=== PATIENT | female | born 1945 | race Caucasian/White ===

== ENCOUNTER → 2020-09-04 10:42 | Outpatient (CLI) | payer MEDICARE, SELFPAY ==
--- NOTE | ~2020-09-04 | MM_ITS ---
EXAMINATION: MM scrn dereck implant BI w lee HISTORY: Screening mammogram, family history of breast cancer in her mother. TECHNIQUE: Craniocaudal and mediolateral oblique 3-D tomosynthesis images with implant displacement a nd synthetic 2-D images were generated. Craniocaudal and mediolateral oblique views of the breasts wi thout implant displacement were obtained using full field digital mammography. CAD analysis was submi tted and interpreted. COMPARISON: 02/02/2019, 12/31/2017, 12/29/2016 BREAST PARENCHYMAL COMPOSITION: The breasts are almost entirely fatty. FINDINGS: There is no evidence of suspicious mass, calcification, or architectural distortion to sugg est malignancy in either breast. There has been no suspicious interval change. IMPRESSION: 1. No mammographic evidence of malignancy. 2. Recommend routine screening mammography in one year. BI-RADS Category 1: Negative Reviewed, dictated and finalized at location A. STORAGE WORKER
== END ==
PROVIDERS: Visit Provider Family Medicine
DX: Z12.31 Encounter for screening mammogram for malignant neoplasm of breast (principal)
CPT/HCPCS: 77063; 77067

== ENCOUNTER 2022-04-13 08:21 | Outpatient (CLI) | payer MEDICARE, SELFPAY ==
[2022-04-13 09:11] LABS: Appearance Urine Clear (Clear); Bilirubin Urine Negative (Negative); Blood Urine Negative (Negative); Color Urine Yellow (Yellow); Glucose Urine UA Negative (Negative); Ketones Urine Negative (Negative); Leukocyte Esterase Ur Negative LEU/UL (NEGATIVE); Nitrate Urine Negative (Negative); Protein Urine Negative (Negative); Urobilinogen Urine 0.2 mg/dL (<2.0)
[2022-04-13 09:12] LABS: Add Urine Microscopic? NO
[2022-04-13 09:12] LABS: Basophils Absolute Auto 0.1 K/mm3 (0.0-0.1); Basophils Percent Auto 0.5 % (0.2-1.2); Eosinophils Absolute Auto 0.1 K/mm3 (0-0.3); Eosinophils Percent Auto 0.8 % (0-4.4); Hematocrit 40.1 % (37.0-47.0); Hemoglobin 13.5 g/dL (12.0-15.0); Immature Granulocyte Absolute 0.14 K/mm3 (0.00-0.031); Immature Granulocyte Percent A 1.2 % (0-0.5); Lymphocytes Absolute Auto 2.68 K/mm3 (0.9-3.2); Lymphocytes Percent Auto 22.5 % (18.3-44.2); Mean Corpuscular HGB Conc 33.7 g/dl (32-36); Mean Corpuscular Hemoglobin 29.1 pg (26-34); Mean Corpuscular Volume 86.4 fl (80-100); Mean Platelet Volume 9.2 fl (7.4-10.4); Monocytes Absolute Auto 0.9 K/mm3 (0.1-0.6); Monocytes Percent Auto 7.9 % (2.6-8.5); Neutrophils Percent Auto 67.1 % (45.5-73.1); Platelet Count Result 446 k/mm3 (150-375); Red Blood Count 4.64 M/mm3 (4.2-5.4); Red Cell Distribution Width 15.6 % (11.5-14.5); White Blood Count 11.9 K/mm3 (4.5-10.0)
[2022-04-13 09:25] LABS: Partial Thromboplastin Time 24.4 SECONDS (22.3-36.8)
[2022-04-13 09:29] LABS: Anion Gap 8 mmol/L (8-16); Blood Urea Nitrogen 14 mg/dL (7-17); Calcium 9.2 mg/dL (8.4-10.2); Carbon Dioxide 29 mmol/L (22-30); Chloride 101 mmol/L (98-107); Estimated Glomerular Filt Rate > 60; Glucose 101 mg/dL (65-110); Sodium 138 mmol/L (137-145)
== END 2022-04-13 08:22 | disposition home or self-care (01) ==
LOC: ANHSURGERY 08:25
PROVIDERS: PCP Family Medicine; Visit Provider Neurological Surgery
DX: M48.061 Spinal stenosis, lumbar region without neurogenic claudication (principal); Z01.818 Encounter for other preprocedural examination
CPT/HCPCS: 36415; 80048; 81003; 85025; 85610; 85730; 86850; 86900; 86901

== ENCOUNTER 2022-04-15 00:53 | Day surgery (SDC) | payer MEDICARE, SELFPAY ==
--- NOTE | 2022-04-10 08:18 | PC.NURSE ---
Report to the Outpatient Waiting Room, entrance under the green pavilion located off [facility], at time _0600 on date _04/15/22 . OR Time: __30 . - You and your visitor will be asked a series of questions to screen for COVID 19 for your protection. - Only one visitor is allowed at this time. - The patient visitor is requested to leave or wait in car when not with patient. - A mask is required within the hospital. Patients may have clear liquids (water, carbonated beverages, clear teas, apple juice) until 3 hours prior to surgery with a maximum of 20 ounces. - No food from midnight until time of surgery - Infants may have breast milk until 4 hours before surgery, infant formula 6 hours prior to surgery. - Children will be allowed to drink immediately following surgery. If applicable, please bring a bottle or sippy cup to assist with drinking. Juice, water, soda, and popsicles are readily available. For infants on formula, please bring formula the day of surgery. Pacifiers are allowed. Take the following medications with a SIP of water the morning of surgery: __ALPRAZOLAM,DILTIAZEM Medications to discontinue per physician __PT STATES ASPIRIN AND MULTI VITAMIN 7 DAYS PRE OP PER DR ZEPEDA. ALL VITAMINS AND SUPPLEMENTS 3 DAYS PRE OP Date to take last dose_ASPIRIN AND MULTI VITAMIN 04/07/22. ALL VITAMINS AND SUPP. 04/11/22 Please no make-up, nail gibraltarian, hairspray, perfume, deodorant, or body powder the day of surgery. No jewelry (including any body piercings) or valuables the day of surgery, leave them at home. Please take a shower or bath the night before, or the morning of, surgery with an antibacterial soap. Wear comfortable, loose fitting clothing. Children are encouraged to wear pajamas. - Jewelry must be removed prior to entering the operating room. Rings and piercings that are not removed may be cut off. - The hospital will not accept responsibility for valuables. - Please leave all valuables, including medications, at home the day of surgery. If you are going home after surgery, a licensed city route driver must drive you home. - NO public transportation without another adult. - We recommend that an adult stay with you for 24 hours following discharge. - We also recommend that you do not drive, make important decision, drink alcoholic beverages, or take any drugs that were not prescribed by your health care provider for at least 24 hours after your discharge time. For Pediatric surgeries, we recommend two adults accompany the child home (only one inside the building at this time). Follow any additional instructions given to you from your surgeon. If you or anyone in your household have experienced Covid symptoms in the past week, please notify your surgeon or the nurse liaison at the phone number below for possible testing. Telephone instructions given to _PATIENT and asked if any additional questions and then verbalized understanding. Patient advised to call surgeon office or pre surgery nurse liaison [phone] if any additional questions.
[2022-04-10 08:32] VITALS: BMI 30.4
--- NOTE | 2022-04-14 14:41 | WPDANESEPPF ---
Anes - Initial Pre Proc Eval Procedure: Operation Date: 04/15/22 07:30 Proposed Procedures p Lumbar Decompression L3-4 - Alma Golden MD Date/Time: 04/14/22 14:41 Surgeon: Alma Golden MD Pre Op Diagnosis: Lumbar Stenosis Patient Data Age: 76 Gender: F Height: 1.63 m Weight: 80.3 kg Allergies Allergy/AdvReac Type Severity Reaction Status Date / Time Penicillins Allergy Unknown Rash Unverified 04/15/22 06:12 Home Medications Medication Instructions Recorded Confirmed Type alprazolam 0.25 mg tablet 0.25 mg PO PRN PRN Anxiety 04/10/22 04/15/22 History aspirin 81 mg tablet,delayed 81 mg PO DAILY 04/10/22 04/15/22 History release calcium carbonate 600 mg calcium 1,200 mg PO DAILY 04/10/22 04/15/22 History (1,500 mg) tablet (Calcium) cholecalciferol (vitamin D3) 50 50 mcg PO DAILY 04/10/22 04/15/22 History mcg (2,000 unit) tablet diltiazem HCl 240 mg 240 mg PO DAILY 04/10/22 04/15/22 History capsule,extended release 24 hr esomeprazole magnesium 40 mg 40 mg PO DAILY 04/10/22 04/15/22 History capsule,delayed release (Nexium) evolocumab 140 mg/mL subcutaneous 140 mg subcut [id number] 04/10/22 04/15/22 History pen injector (Kim SureAnkitick) lisinopril 20 1 tablet PO DAILY 04/10/22 04/15/22 History mg-hydrochlorothiazide 12.5 mg tablet multivitamin with minerals-folic 1 tablet PO DAILY 04/10/22 04/15/22 History acid 0.4 mg tablet solifenacin 5 mg tablet (Vesicare) 5 mg PO 3XW 04/10/22 04/15/22 History tizanidine 2 mg tablet 2 mg PO PRN PRN Muscle Spasm 04/10/22 04/15/22 History wheat dextrin 3 gram-calcium 3 g PO DAILY 04/10/22 04/15/22 History gluc,lactate 300 mg/8.8 gram oral powder Patient hx anesthesia problems: none Family hx anesthesia problems: none Results Review: All pre-operative results and documents have been reviewed as part of the pre-operative evaluation. [facility] Past Medical History Medical History (Updated 04/14/22 @ 14:44 by Stalin Gomez MD) Anxiety Arthritis Breast cancer Chronic GERD CVA (cerebral vascular accident) Depression HTN (hypertension) Hx of myocardial infarction Hyperlipidemia Lumbar stenosis Obesity PONV (postoperative nausea and vomiting) Social History Social History Smoking packs per day: 1 Smoking cigarettes per day: 20.0 Years smoked: 15 Smoking pack-years: 15.00 Smoking status: Former smoker Tobacco type: cigarettes Smoking end date: 09/20/74 Alcohol intake: current Drinks per week: 4 Living arrangements: alone Spiritual care concerns: No Anes - Eval Final PreProcedure Day of Procedure 04/14/22 14:41 Patient weight: obese Heart: regular rate and rhythm Lungs: clear to auscultation and normal air movement Airway: Mallampati scale class II Neurological: alert and oriented Last oral intake: >/= 8 hours ASA classification: III Emergent: no Anesthetic plan: proceed Anesthesia type and monitoring: general ETT Results Review: All pre-operative results and documents have been reviewed as part of the pre-operative evaluation. Informed Consent: The patient's anesthetic plan and its attendant risks and benefits were discussed with the patient/family/POA. Questions were solicited and answers provided to the satisfaction of the patient/family/POA.
[2022-04-15] VITALS (12 sets, daily range): BP systolic 127–154; BP diastolic 46–78; PULSE 54–84; RESP 11–16; TEMP 36.4–36.6; O2SAT 94–100
--- NOTE | ~2022-04-15 | XR_ITS ---
XR fluoroscopy no charge Lumbar decompression procedure TECHNIQUE: Fluoroscopy used during lumbar decompression procedure performed by [Alma Golden MD] on 04/15/2022. 11.1 seconds of fluoroscopy. With 2 fluoroscopic images. FINDINGS: Correlate with procedure note. IMPRESSION: Fluoroscopy used during lumbar decompression procedure.. Please refer to procedural repor t for details. Reviewed, dictated and finalized at location A. IMPRESSION: Fluoroscopy used during lumbar decompression procedure.. Please ref er to procedural report for details.
[2022-04-15] MEDS: LACTATED RINGERS 1,000 ML 30 ML IV CONT ×2 (07:00→09:19)
--- NOTE | 2022-04-15 07:43 | PM.HPGS ---
History of Present Illness History of Present Illness Consent: Risks, benefits, and alternatives have been discussed and questions answered. Patient agrees to proceed with procedure. Chief complaint: Lumbar Stenosis Narrative: Holly Payne is a 76 year old female who has claudicatory low back and lower extremity pain in the setting of lumbar stenosis at L3-4. She has not responded to non surgical measures in any durable way, and presents today for surgery, specifically a lumbar decompression L3-4 Review of Systems Review of Systems: negative [facility] Past Medical History Medical History (Updated 04/14/22 @ 14:44 by Stalin Gomez MD) Anxiety Arthritis Breast cancer Chronic GERD CVA (cerebral vascular accident) Depression HTN (hypertension) Hx of myocardial infarction Hyperlipidemia Lumbar stenosis Obesity PONV (postoperative nausea and vomiting) Social History Social History Smoking packs per day: 1 Smoking cigarettes per day: 20.0 Years smoked: 15 Smoking pack-years: 15.00 Smoking status: Former smoker Tobacco type: cigarettes Smoking end date: 09/20/74 Alcohol intake: current Drinks per week: 4 Living arrangements: alone Spiritual care concerns: No Meds Home Medications and Allergies Home Medications Medication Instructions Recorded Confirmed Type alprazolam 0.25 mg tablet 0.25 mg PO PRN PRN Anxiety 04/10/22 04/15/22 History aspirin 81 mg tablet,delayed 81 mg PO DAILY 04/10/22 04/15/22 History release calcium carbonate 600 mg calcium 1,200 mg PO DAILY 04/10/22 04/15/22 History (1,500 mg) tablet (Calcium) cholecalciferol (vitamin D3) 50 50 mcg PO DAILY 04/10/22 04/15/22 History mcg (2,000 unit) tablet diltiazem HCl 240 mg 240 mg PO DAILY 04/10/22 04/15/22 History capsule,extended release 24 hr esomeprazole magnesium 40 mg 40 mg PO DAILY 04/10/22 04/15/22 History capsule,delayed release (Nexium) evolocumab 140 mg/mL subcutaneous 140 mg subcut [id number] 04/10/22 04/15/22 History pen injector (Kim Ching) lisinopril 20 1 tablet PO DAILY 04/10/22 04/15/22 History mg-hydrochlorothiazide 12.5 mg tablet multivitamin with minerals-folic 1 tablet PO DAILY 04/10/22 04/15/22 History acid 0.4 mg tablet solifenacin 5 mg tablet (Vesicare) 5 mg PO 3XW 04/10/22 04/15/22 History tizanidine 2 mg tablet 2 mg PO PRN PRN Muscle Spasm 04/10/22 04/15/22 History wheat dextrin 3 gram-calcium 3 g PO DAILY 04/10/22 04/15/22 History gluc,lactate 300 mg/8.8 gram oral powder Allergies Allergy/AdvReac Type Severity Reaction Status Date / Time Penicillins Allergy Intermediate Rash Verified 04/15/22 07:12 Vital Signs Vital Signs - 24 hr 04/15/22 07:10 Temperature 97.9 F Pulse Rate 84 Respiratory Rate 16 Blood Pressure 150/78 H Pulse Oximetry 98 Oxygen Delivery Room Air Exam Narrative: Awake, alert, oriented x 3 Speech CF THEO EOMI Face= TML MAEW with good strength RRR CTA Soft NTND Assessment and Plan Assessment and plan (1) Lumbar stenosis: Code(s): M48.061 - Spinal stenosis, lumbar region without neurogenic claudication Status: Acute Plan 76 year old female with claudicatory low back and lower extremity pain presents for lumbar decompression L3-4 Please see my office visit note from 03/06/2022 for full documentation as to risks indications and recovery from surgery
--- NOTE | 2022-04-15 07:49 | WPDHPUPDATE1 ---
History and Physical Update Update Date/Time: 04/15/22 07:49 History and Physical has been reviewed, including an updated exam of the patient. There are NO changes in the patient's condition. Risks, benefits, and alternatives have been discussed and questions answered. Patient agrees to proceed with procedure.
[2022-04-15] MEDS: ceFAZolin 2 GM/D5W 50 ML 2 GM/50 ML BAG IVPB (07:54)
[2022-04-15] MEDS: BUPIVACAINE HCL 0.5% PF 30 ML VIAL INFILTRATE (08:35)
[2022-04-15] MEDS: LIDO 1%/EPINEPHRINE 1:100,000 10 ML VIAL INFILTRATE (08:35)
--- NOTE | 2022-04-15 09:03 | W.PM.PROC2 ---
Procedure Note - Detailed Date of Procedure 04/15/22 Pre-op Diagnosis Lumbar Stenosis Post-op Diagnosis Same Procedure Performed Lumbar decompression L3-4 Surgeon Alma Golden MD Anesthesia General Indications Holly Payne is a very pleasant 76 year old female who presents with claudicatory and radicular low back and lower extremity pain in the setting of lumbar stenosis at L3-4. She has not had durable relief of symptoms with non surgical measures. She presents for surgical decompression at L3-4 Risks, indications and recovery from surgery discussed with patient in the office and she asks us to proceed Description of Procedure The patinet was brought into the operating room where general anesthesia was induced. Appropriate monitoring was obtained. The patient was turned into a prone position on the Kristian table with a Eric frame. Extremeties were padded. The patient was secured to the table. Localization was performed using intraoperative fluoroscopy and the L3-4 level was identified. The patient's back was prepped and draped sterilely. A surgical time out was performed. The planned incision was infused with local anesthetic. The incision was made using a #10 skin blade. Hemostasis was achieved. Self retaining retractors were placed and advanced. The L3 and L4 spinous proceeses were identified and the muscle was dissected off of the spinous process and lamina of L3 using bovie electrocautery. Self retaining retractors were advanced. Attention was turned to the L3-4 level. A curette was placed under the L3 lamina and the L3-4 level was confirmed again using intraoperative fluoroscopy. The spinous process was removed using a rongeur. The lamina was drilled using a high speed arden drill with a matchstick tip. The lamina was drilled lateral to the level of the facet complex until, inferiorly, ligament was visible. The lamina was thinned and then dissected from the lamina using a curette. The remaining lamina and medial facet at L3-4 were removed with kerossen punches. The ligament was then carefully dissected away from the thecal sac and removed using kerossen punches. The foramen at L3 and L4 were drilled and dissected / decompressed using the kerossen punches. At the completion of the decompression the central canal and neural foramen were patent on the right and the left at L3 and L4. The wound was irrigated and hemostasis was achieved. Self retaining retractors were removed and the muscle and fascia were closed using interrupted 0 vicryl suture. The soft tissue was closed using 2-0 vicryl suture. The dermis was closed using 3-0 vicryl suture and then a running monocril. The skin was closed with surgical glue. 10cc of 0.5% bupivicaine was infused prior to skin closure. I was present for the entirety of the procedure. All counts were correct. At the completion of the procedure the patient was returned to the stretcher, extubated and taken to recovery in stable condition. Estimated Blood Loss 20 IV Fluids 1,600 (cc) Drains No Pathology None sent Complications None Disposition PACU
[2022-04-15] MEDS: fentaNYL CITRATE INJ (*CRX) 100 MCG/2 ML VIAL 25 MCG IV PUSH ×6 (09:47→11:47)
[2022-04-15] MEDS: oxyCODONE HCL (*CRX) 5 MG TAB IR PO (10:49)
[2022-04-15] MEDS: ONDANSETRON INJ 4 MG/2 ML VIAL IV PUSH (11:29)
== END 2022-04-15 12:36 | disposition home or self-care (01) ==
PROVIDERS: PCP Family Medicine; Visit Provider Neurological Surgery
PROC: (CPT 22612; principal; 2022-04-15 07:30)
DX: M48.061 Spinal stenosis, lumbar region without neurogenic claudication (principal); I10 Essential (primary) hypertension; I25.2 Old myocardial infarction; E78.5 Hyperlipidemia, unspecified; F41.9 Anxiety disorder, unspecified; K21.9 Gastro-esophageal reflux disease without esophagitis; Z85.3 Personal history of malignant neoplasm of breast; F32.A Depression, unspecified; E66.9 Obesity, unspecified; Z68.30 Body mass index [BMI] 30.0-30.9, adult; Z79.82 Long term (current) use of aspirin; Z87.891 Personal history of nicotine dependence
CPT/HCPCS: 63047; 36415; 80048; 81003; 85025; 85610; 85730; 86850; 86900; 86901; 99199; A9270; J0690; J1100; J2405; J2704; J3010; J7120

== ENCOUNTER → 2022-08-26 11:06 | Outpatient (CLI) | payer MEDICARE, SELFPAY ==
--- NOTE | ~2022-08-26 | MM_ITS ---
EXAMINATION: MM scrn dereck implant BI w lee HISTORY: Screening mammogram, family history of breast cancer in her mother. TECHNIQUE: Craniocaudal and mediolateral oblique 3-D tomosynthesis images with implant displacement a nd synthetic 2-D images were generated. Craniocaudal and mediolateral oblique views of the breasts wi thout implant displacement were obtained using full field digital mammography. CAD analysis was submi tted and interpreted. COMPARISON: 09/04/2020, 02/02/2019, 12/31/2017 BREAST PARENCHYMAL COMPOSITION: The breasts are almost entirely fatty. FINDINGS: There is no evidence of suspicious mass, calcification, or architectural distortion to sugg est malignancy in either breast. There has been no suspicious interval change. IMPRESSION: 1. No mammographic evidence of malignancy. 2. Recommend routine screening mammography in one year. BI-RADS Category 1: Negative Reviewed, dictated and finalized at location A. ED SEAM OPERATOR
== END ==
PROVIDERS: PCP Family Medicine; Visit Provider Family Medicine
DX: Z12.31 Encounter for screening mammogram for malignant neoplasm of breast (principal)
CPT/HCPCS: 77063; 77067

== ENCOUNTER 2022-09-03 09:42 | Outpatient (CLI) | payer MEDICARE, SELFPAY ==
--- NOTE | ~2022-09-03 | XR_ITS ---
Lumbosacral Spine: AP and lateral views Clinical History: Pain Findings: The normal lordotic curve is maintained. The vertebral bodies and posterior elements are i ntact. The intervertebral disc spaces are preserved. Facet joint degenerative changes are present fr om L3 through S1. The sacroiliac joints are normally outlined. Impression: Facet joint degenerative changes, as above. Reviewed, dictated and finalized at location [] STORAGE WORKER Impression: Facet joint degenerative changes, as above.
== END 2022-09-03 09:43 | disposition home or self-care (01) ==
LOC: ANHIMG 09:45
PROVIDERS: PCP Family Medicine; Visit Provider Neurological Surgery
DX: M54.50 Low back pain, unspecified (principal)
CPT/HCPCS: 72100

== ENCOUNTER → 2022-10-02 09:52 | Outpatient (CLI) | payer MEDICARE, SELFPAY ==
--- NOTE | ~2022-10-02 | CT_ITS ---
EXAMINATION: CTA brain carotid DATE: 10/02/2022 11:04 INDICATION: Cerebral aneurysm. Lightheadedness. Blurred vision. TECHNIQUE: Computed tomographic angiography (CTA) of the head was performed without and with 100 mL O mnipaque-350 intravenous contrast. CTA of the neck was performed with intravenous contrast. Automated exposure control and iterative reconstruction technique were employed. The dose-length product was 1 503.97 mGy-cm. Maximum intensity projection and volume rendered 3D-reconstructions were created by luis guillermo technologist on a separate workstation. COMPARISON: None. FINDINGS: HEAD CTA: There are small old infarcts in left cerebellum. There is a 1.7 cm calcified extra-axial ma ss posterior to left cerebellum, consistent with a meningioma. There are scattered areas of low atten uation in the cerebral white matter. There is no acute ischemic infarct or intracranial hemorrhage. T he ventricles are normal in size. There is mild mucosal thickening in sphenoid sinus. There is a trac e left mastoid effusion. The orbits are normal. Left vertebral artery is dominant. There is no signif icant stenosis of basilar artery or the posterior cerebral arteries. There is no osseous stenosis of the intracranial internal carotid arteries or anterior or middle cerebral arteries. Anterior communic ating artery is normal. The posterior communicating arteries are normal. There is no aneurysm. NECK CTA: There are no pathologically enlarged lymph nodes. There are nodules in the thyroid measurin g up to 2.0 cm. There is no significant stenosis of the vertebral arteries. There is 14% stenosis of the proximal right internal carotid artery relative to normal distal artery lumen diameter (NASCET cr iteria). There is 15% stenosis of the proximal left internal carotid artery relative to normal distal artery lumen diameter. There is severe cervical spondylosis. IMPRESSION: 1. Small old infarcts in the left cerebellum. 2. 1.7 cm meningioma posterior to left cerebellum. 3. No aneurysm or significant intracranial arterial stenosis. 4. 14% stenosis of the proximal right internal carotid artery relative to normal distal artery lumen diameter (NASCET criteria). 5. 15% stenosis of the proximal left internal carotid artery relative to normal distal artery lumen d iameter. Reviewed, dictated and finalized at location A. PORTAL DEVELOPER IMPRESSION: 1. Small old infarcts in the left cerebellum. 2. 1.7 cm meningioma posterior to left cerebellum. 3. No aneurysm or significant intracranial arterial stenosis. 4. 14% stenosis of the proximal right internal carotid artery relative to radhames l distal artery lumen diameter (NASCET criteria). 5. 15% stenosis of the proximal left internal carotid artery relative to normal distal artery lumen diameter.
[2022-10-02 10:24] LABS: Estimated Glomerular Filt Rate > 60
== END ==
PROVIDERS: PCP Family Medicine; Visit Provider Psychiatry & Neurology Neurology
DX: I63.9 Cerebral infarction, unspecified (principal); I65.23 Occlusion and stenosis of bilateral carotid arteries
CPT/HCPCS: 70496; 70498; Q9967

== ENCOUNTER → 2023-11-19 14:10 | Outpatient (CLI) | payer MEDICARE, SELFPAY ==
--- NOTE | ~2023-11-19 | MR_ITS ---
EXAMINATION: MR brain/brain stem wo/w con DATE: 11/19/2023 15:18 INDICATION: Meningioma. TECHNIQUE: Magnetic resonance imaging (MRI) of the brain and brainstem was performed without and with 17 mL MultiHance intravenous contrast. COMPARISON: Head CT 10/02/2022 FINDINGS: Posterior to the left cerebellum, there is a 16 mm enhancing extra-axial mass with dural ta ils, consistent with a meningioma. There are old infarcts in the cerebellum bilaterally. There are sc attered areas of nonspecific increased T2-weighted signal intensity in the cerebral white matter. The re is no acute ischemic infarct or intracranial hemorrhage. The ventricles are normal in size. The or bits are normal. The paranasal sinuses are clear. There are bilateral mastoid effusions. IMPRESSION: 1. 16 mm meningioma posterior to the left cerebellum. 2. Old infarcts in the cerebellum bilaterally. 3. Moderate nonspecific cerebral white matter disease, which likely represents chronic small vessel i schemic disease. Reviewed, dictated and finalized at location A. TS BOOKMAKER IMPRESSION: 1. 16 mm meningioma posterior to the left cerebellum. 2. Old infarcts in the cerebellum bilaterally. 3. Moderate nonspecific cerebral white matter disease, which likely represents chronic small vessel ischemic disease.
== END ==
PROVIDERS: PCP Neurological Surgery; Visit Provider Neurological Surgery
DX: D32.9 Benign neoplasm of meninges, unspecified (principal); R90.82 White matter disease, unspecified
CPT/HCPCS: 70553; A9577

== ENCOUNTER → 2023-11-19 14:13 | Outpatient (CLI) | payer MEDICARE, SELFPAY ==
--- NOTE | ~2023-11-19 | MM_ITS ---
EXAMINATION: MM scrn dereck implant BI w lee HISTORY: Screening mammogram TECHNIQUE: Craniocaudal and mediolateral oblique 3-D tomosynthesis images with implant displacement a nd synthetic 2-D images were generated. Craniocaudal and mediolateral oblique views of the breasts wi thout implant displacement were obtained using full field digital mammography. CAD analysis was submi tted and interpreted. COMPARISON: Comparison to multiple prior studies sequentially, with oldest reviewed study dated 12/11. BREAST PARENCHYMAL COMPOSITION: The breasts are almost entirely fatty. FINDINGS: There is no evidence of suspicious mass, calcification, or architectural distortion to sugg est malignancy in either breast. There has been no suspicious interval change. IMPRESSION: 1. No mammographic evidence of malignancy. 2. Recommend routine screening mammography in one year. BI-RADS Category 1: Negative Reviewed, dictated and finalized at location A. ER SCREEN INSTALLER
== END ==
PROVIDERS: PCP Family Medicine; Visit Provider Family Medicine
DX: Z12.31 Encounter for screening mammogram for malignant neoplasm of breast (principal)
CPT/HCPCS: 77063; 77067

== ENCOUNTER 2025-01-01 13:51 | Outpatient (CLI) | payer MEDICARE, SELFPAY ==
--- NOTE | ~2025-01-01 | MR_ITS ---
EXAMINATION: MR brain/brain stem wo/w con DATE: 01/01/2025 14:34 INDICATION: Meningioma TECHNIQUE: Magnetic resonance imaging (MRI) of the brain and brainstem was performed without and with 15 mL Multihance intravenous contrast. Sequences included sagittal and axial T1-weighted SE, axial d iffusion-weighted FS SE, axial T2*-weighted GRE, axial T2-weighted FLAIR, and axial T2-weighted FSE. Postcontrast axial and coronal T1-weighted SE was obtained. Apparent diffusion coefficient (ADC) maps were created. COMPARISON: Brain MR dated 11/19/2023 FINDINGS: There are no areas of restricted diffusion to suggest acute infarction. No interval change in a few s mall infarcts in the bilateral cerebellar hemispheres. No change in a 1.6 cm enhancing extra-axial ma ss with continued residual tail positioned posterior to the left cerebellar hemisphere consistent wit h a meningioma. No intracranial hemorrhage. There are scattered areas of nonspecific increased T2-ana ghted signal intensity in the cerebral white matter, predominantly involving the deep and periventric ular white matter. There are no intraparenchymal signal abnormalities seen on the other pulse sequenc es. The ventricles are symmetric and normal in size. There are no abnormal extra-axial fluid collecti ons. Flow voids are seen in the cerebral arteries on the T2-weighted sequences consistent with their expected patency. Mild mucosal thickening the bilateral ethmoid sinuses. Visualized orbits and soft t issues are unremarkable. There are no other areas of abnormal enhancement on the post contrast images . IMPRESSION: 1. Unchanged 16mm meningioma posterior to the left cerebellum. 2. Unchanged small old infarcts in the bilateral cerebellar hemispheres. 2. Stable appearance of moderate scattered nonspecific periventricular predominant white matter T2 hy perintensity consistent with chronic small vessel ischemic disease. Reviewed, dictated and finalized at location A. IMPRESSION: 1. Unchanged 16mm meningioma posterior to the left cerebellum. 2. Unchanged small old infarcts in the bilateral cerebellar hemispheres. 2. Stable appearance of moderate scattered nonspecific periventricular predomin ant white matter T2 hyperintensity consistent with chronic small vessel ischemi c disease.
== END 2025-01-01 13:52 | disposition home or self-care (01) ==
LOC: MICIMG 13:52
PROVIDERS: PCP Family Medicine; Visit Provider Neurological Surgery
DX: D32.0 Benign neoplasm of cerebral meninges (principal); R90.82 White matter disease, unspecified; I25.2 Old myocardial infarction
CPT/HCPCS: 70553; A9577

== ENCOUNTER 2025-05-04 14:04 | Outpatient (CLI) | payer MEDICARE, SELFPAY ==
--- NOTE | ~2025-05-04 | MM_ITS ---
EXAMINATION: MM scrn dereck implant BI w lee HISTORY: Screening mammogram TECHNIQUE: Craniocaudal and mediolateral oblique 3-D tomosynthesis images with implant displacement a nd synthetic 2-D images were generated. Craniocaudal and mediolateral oblique views of the breasts wi thout implant displacement were obtained using full field digital mammography. CAD analysis was submi tted and interpreted. COMPARISON: Comparison to multiple prior studies sequentially, with oldest reviewed study dated 12/29. BREAST PARENCHYMAL COMPOSITION: Not Dense: The breasts are almost entirely fatty. FINDINGS: There is no evidence of suspicious mass, calcification, or architectural distortion to sugg est malignancy in either breast. There has been no suspicious interval change. IMPRESSION: 1. No mammographic evidence of malignancy. 2. Recommend routine screening mammography in one year. BI-RADS Category 1: Negative Reviewed, dictated and finalized at location A.
== END 2025-05-04 14:05 | disposition home or self-care (01) ==
LOC: MICIMG 14:04
PROVIDERS: PCP Family Medicine; Visit Provider Family Medicine
DX: Z12.31 Encounter for screening mammogram for malignant neoplasm of breast (principal)
CPT/HCPCS: 77063; 77067